=== PATIENT | male | born 1995 | race Caucasian/White ===

== ENCOUNTER 2019-11-04 11:56 | Emergency (ER) | payer BC ==
[2019-11-04 12:25] VITALS: BP 129/72
--- NOTE | 2019-11-04 12:29 | UC ---
Abdominal Pain Male HPI - HPI Summary HPI Summary: Patient is a 24yo male presenting with bilateral lower abdominal pain, nausea, and chills x1 day. Patient states last night "it felt like my stomach was being torn apart and my back hurt." Denies back pain currently. Rates abdominal pain as 3/10 currently and worse with certain movement. Notes better with lying down. Denies vomiting. Notes two episodes of diarrhea this morning. Denies blood in stool. States he "feels bloated." Denies urinary symptoms. Denies known fever. States eating and drinking normally, food does not aggravate symptoms. Denies nausea currently. Denies h/o GI disorders. - History of Current Complaint Chief Complaint: UCAbdominalPain Stated Complaint: DIARRHEA CHILLS BACK PAIN Hx Obtained From: Patient Pain Intensity: 3 Pain Scale Used: 0-10 Numeric - Allergies/Home Medications Allergies/Adverse Reactions: Allergies Allergy/AdvReac Type Severity Reaction Status Date / Time No Known Allergies Allergy Verified 11/04/19 12:25 Home Medications: Home Medications NK [No Home Medications Reported] 11/04/19 [History Confirmed 11/04/19] PMH/Surg Hx/FS Hx/Imm Hx - Surgical History Surgical History: Yes Surgery Procedure, Year, and Place: RIGHT EYE RECONSTRUCTION AFTER DOG BITE - Social History Alcohol Use: Rare Substance Use Type: None Smoking Status (MU): Never Smoked Tobacco Review of Systems All Other Systems Reviewed And Are Negative: Yes Constitutional: Positive: Chills ENT: Positive: Negative Respiratory: Positive: Negative Cardiovascular: Positive: Negative Gastrointestinal: Positive: Abdominal Pain - bilateral lower abdominal pain, Diarrhea - x2, Nausea. Negative: Vomiting Genitourinary: Positive: Negative Musculoskeletal: Positive: Negative Neurological/Mental Status: Positive: Negative Physical Exam - Summary Physical Exam Summary: Vital Signs Reviewed: Yes A+Ox3, no distress, sitting comfortably on exam table Eyes: Conjunctiva Clear ENT: Hearing grossly normal, TM x 2 clear, moist, uvula midline, no exudate, no erythema Neck: Positive: Supple Respiratory: Positive: No respiratory distress, No accessory muscle use + CTA throughout no w/r Cardiovascular: RRR nl s1, s2 no m/r Abd: soft, no organomegaly, + BS, nt/nd, no guarding, no mcburneys point tenderness Musculoskeletal Exam: RINCON x 4 without difficulty Neurological: Positive: Alert Psychological: Positive: age appropriate behavior Skin: Positive: no rash, no ecchymosis Vital Signs: Initial Vital Signs Temp 97.8 F 11/04/19 12:23 Pulse 74 11/04/19 12:23 Resp 16 11/04/19 12:23 BP 129/72 11/04/19 12:23 Pulse Ox 100 11/04/19 12:23 Lab Results 11/04/19 11/04/19 Range/Units 12:32 12:35 POC Urine Color Yellow POC Urine Clarity Clear POC Urine pH 5.5 (5-9) POC Ur Specif [place] >= 1.030 (1.010-1.030) POC Urine Protein Negative (Negative) POC Ur Glucose (UA) Negative (Negative) POC Urine Ketones Negative (Negative) POC Urine Blood Trace-intact (Negative) POC Urine Nitrite Negative (Negative) POC Urine Bilirubin Negative (Negative) POC Urine Urobilinogen 1.0 (Negative) POC U Leukocyte Esteras Negative (Negative) Influenza A (Rapid) Negative (Negative) Influenza B (Rapid) Negative (Negative) Abd Pain Male Course/Dx - Course Course Of Treatment: UA negative. Rapid flu negative. Discussed likely viral etiology of symptoms. Educated on s/s of abdominal illness that warrants further evaluation and instructed to go to ED with any new or worsening symptoms. Patient PE findings WNL, VS normal, and sitting comfortably on exam table. Patient declined zofran. He received maalox, viscous lidocaine, and toradol IM. Instructed to eat bland diet and increase fluids. Patient voiced understanding and agreed with treatment plan. - Differential Dx/Clinical Impression Provider Diagnosis: Acute bilateral lower abdominal pain, Acute diarrhea Discharge ED - Sign-Out/Discharge Documenting (check all that apply): Patient Departure All imaging exams completed and their final reports reviewed: No Studies - Discharge Plan Condition: Stable Disposition: HOME Patient Education Materials: Acute Diarrhea (ED), Acute Abdominal Pain (ED) Referrals: Faith Goodman PA [Primary Care Provider] - If Needed Additional Instructions: Get plenty of rest and fluids. Eat a bland diet, such as bread, bananas, and rice while symptoms are present. Go to the emergency department if you experience any new or worsening symptoms, including severe abdominal pain, fever higher than 102, excessive vomiting/ diarrhea, or are unable to keep fluids down. - Billing Disposition and Condition Condition: STABLE Disposition: Home - Attestation Statements Provider Attestation: This patient was not seen by me. I was available for consult. Chart reviewed. SHERMAN
[2019-11-04 12:48] LABS: Influenza A Molecular Negative (Negative); Influenza B Molecular Negative (Negative)
[2019-11-04] MEDS ORDERED: Ketorolac *IM* INJ* 60 MG/2 ML VIAL IM ONE (12:52)
[2019-11-04] MEDS ORDERED: Lidocaine 2% VISCOUS* 15 ML UDC PO ONE (12:52)
[2019-11-04] MEDS ORDERED: Al Hydrox/Mg Hydrox/Simet LIQ* 30 ML UDC PO ONE (12:52)
== END 2019-11-04 13:27 | disposition home or self-care (01) ==
LOC: UCEAST 11:56
DX: R10.31 Right lower quadrant pain (principal); R10.32 Left lower quadrant pain; R19.7 Diarrhea, unspecified; R11.0 Nausea
CPT/HCPCS: 81003; 96372; 99212; A9270-GY; G0463; J1885